=== PATIENT | female | born 1975 | race Caucasian/White ===

== ENCOUNTER → 2017-12-30 10:28 | Outpatient (CLI) | payer OTHER, SELFPAY ==
--- NOTE | 2017-12-30 | IMM_PTH ---
PATIENT: KELSEY ORELLANA LOC: [facility] U#:[id number] AGE/SX: 49/F ROOM: RE12/30/[address]: Dr. Luz Maria Patino MD : 1975 BED: DIS: SPEC #: [id number] RECD: 12/31/17 15:51 STATUS: MICHELA REQuin #: [id number] JILLIAN: 12/30/17 00:[address]: Luz Maria Patino DEPT: IMMUNOHISTOCHEMISTRY RECD BY: Fifi Maldonado ENTERED: 12/31/17 15:52 SP TYPE: IMMUNO OTHR DR: No Primary Care Phys Tissues: Right breast, NOS Procedures: CALPONIN-1 (add) CK8 (add) E-CAD (add) HER2 EDVIN (add) KI-67 (add) P53 (add) NE (add) P40 (add) ER (initial) PHYSICIAN & INSTITUTION [place] [address] SPECIMEN INFORMATION: Tissue Source: Right breast Clinical Info: Right breast 6 o'clock microcalcifications Specimen Number: [id number] #4 CPT code: 11680, 30772 x5, 55362 x3 METHODOLOGY: Deparaffinized sections of prefer/formalin-fixed tissue or PAP/DQ stained slides are incubated with monoclonal/polyclonal antibodies/oligonucleotide probes. Localization is made via biotin free immunoperoxidase method. Appropriate controls are performed and reacted as expected. Results on target cell population are indicated in the following table: RESULTS: ANTIBODY / CLONE RESULT Block 4 E-Cad (ECH-6) positive CK8 (49fvehU64) positive Ki-67 (30-9) positive, moderate P53 (DO-7) positive, moderate P40 (BC28) negative * Calponin-1 (QK467B) negative * *?Positive in the area of ductal carcinoma in situ. MORPHOMETRIC ANALYSIS ER (clone 6F11) 77%, moderate NE (clone 16/1E2) 8%, weak Her-2Neu (clone CB11) 3+ The prognostic test for HER2 is performed on formalin-fixed paraffin embedded tissue. A 3+ (positive) staining pattern is defined as intense, homogeneous, complete, circumferential membranous staining in >10% of contiguous tumor cells. A similar weak (2+) staining pattern is interpreted as equivocal. TANIYA follow-up testing is recommended for all equivocal cases. Positivity/negativity for ER/NE is reported if > or < 1% of the tumor cells are immuno- reactive, respectively. The ASCO/CAP criteria is used for scoring. Reference: Journal of Clinical Oncology, 2013; 31:7136-7675 & 2010; 16:0317-9987. Duration of fixation: 8 Hrs; Sample Adequate: Yes. These assays have not been validated on decalcified tissues. Results should be interpreted with caution given the likelihood of false negativity on decalcified specimens. These tests were developed and their performance characteristics determined by [facility]. They may not have been cleared or approved by the U.S. Food and Drug Administration. The FDA has determined that such clearance or approval is not necessary. 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 Positive for estrogen receptors (favorable prognostic indicator). Positive for progesterone receptors (favorable prognostic indicator). Positive for overexpression of WDT6qkk. SJ:julio 01/01/18 Case has been reviewed in consultation with Dr. Lara who concurs with the above diagnosis. IDC:AM
--- NOTE | 2017-12-30 11:10 | BRBX_PTH ---
PATIENT: KELSEY ORELLANA LOC: [facility] U#:[id number] AGE/SX: 49/F ROOM: RE12/30/[address]: Dr. Luz Maria Patino MD : 1975 BED: DIS: SPEC #: [id number] RECD: 12/30/17 12:21 STATUS: TITIAyse SNOW #: [id number] JILLIAN: 12/30/17 11:[address]: Luz Maria Patino DEPT: SURGICAL PATHOLOGY RECD BY: Marilu Serrato ENTERED: 12/30/17 13:56 SP TYPE: BREAST BX OT DR: No Primary Care Phys Tissues: Right breast, NOS Procedures: Surgery Specimen Level IV HEADER OPERATION: Right breast stereotactic needle core biopsy PRE-OP DIAGNOSIS: Right breast 6 o'clock microcalcifications TISSUE SUBMITTED: Right breast, needle core biopsy ISCHEMIC TIME: 2 minutes FIXATION TIME: 8 hours MICROSCOPIC DIAGNOSIS Right breast, 6 o'clock microcalcifications, stereotactic needle core biopsy: Invasive ductal carcinoma, nuclear grade 3 (0.3 cm in greatest length). Ductal carcinoma in situ. Focal microcalcifications. See comment. HARINDER:julio 12/31/17 COMMENT Invasive carcinoma and ductal carcinoma both show marked chronic inflammatory reaction. Ductal carcinoma in situ shows solid pattern and high nuclear grade. Immunohistochemistry ([id number]) supports the above diagnosis. ER/WA/Qlc4ujc studies are being performed on sections of tumor and the results from this study will be reported separately ([id number]). Case has been reviewed in consultation with Dr. Lara who concurs with the above diagnosis. IDC:AM MICROSCOPIC DESCRIPTION Slides are reviewed. GROSS DESCRIPTION Received is one container labeled with the patient's name and not further designated. The specimen consists of multiple elongated fragments of chan-yellow fibroadipose tissue mixed with blood clot that in aggregate measure 5 x 3 x 1 cm. The entire specimen is submitted in five cassettes. / HARINDER:julio 12/30/17 TC:0 CPT: 65614 ADDENDUM ADDENDUM ADDENDUM ADDENDUM ADDENDUM ADDENDUM ADDENDUM ADDENDUM ADDENDUM ADDENDUM ADDENDUM ADDENDUM 03/28/2018 12:47 ADDENDUM 03/28/2018 12:47 ADDENDUM 03/28/2018 12:47 ADDENDUM 03/28/2018 12:47 ADDENDUM 03/28/2018 12:47 This addendum is added to incorporate an outside pathology consultation report. The case was examined at [facility] (#[id number]) and the following diagnosis was rendered. Breast, right, core biopsies at 6 o'clock: Invasive ductal carcinoma, nuclear grade 3 (3 mm in greatest length). 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 Focal microcalcifications present. Please see complete above mentioned consultation report in EMR
--- NOTE | 2017-12-30 13:33 | OP.PCM_ITS ---
Report of Operation Date of Procedure: 12/30/17 Pre-Operative Diagnosis: abnormal calcifications on right breast mammograms Post-Operative Diagnosis: same Surgery/Procedure Performed:: right stereotactic breast biopsy Description of Surgical Findings:: very superficial calcifications located inferior aspect of breast Type of Anesthesia:: Local - 1% xylocaine Specimen's removed: right breast tissue Estimated Blood Loss (mL): < 1 ml Fluids Replaced: none Description of Procedure: After informed consent was given, the patient was brought into the breast biopsy suite. Appropriate time out protocol was followed. She was then placed in the prone position on the stereotactic biopsy table. The patient?s right breast was then placed at the opening at the head of the table. A high school physical education teacher compression mammogram was then obtained in the medial view. The suspicious radiological lesion was then identified. Stereo pictures of the lesion were then taken for XYZ coordinates. The Mammotome biopsy stylus was then positioned where it would be entering into the patient?s breast. The skin at this site was then cleansed with a surgical skin preparation. The skin and subcutaneous tissues at this site were then infiltrated with 1% xylocaine. A small skin incision was made with an 11 blade scalpel. The biopsy stylus was then positioned into the patient?s breast at the proper coordinates of depth. Using the Mammotome vacuum-assist device, several core samples of breast tissue were obtained. A specimen mammogram was then obtained and revealed that the calcifications were not within the specimen. Therefore the stylus was removed and the area of suspicion was re-targeted. The biopsy stylus was then positioned into the patient?s breast at the proper coordinates of depth. Using the Mammotome vacuum-assist device, several core samples of breast tissue were obtained. A specimen mammogram was then obtained and revealed that the calcifications were within the specimen. A hemostatic marker clip was then placed into the biopsy cavity and a high school physical education teacher film revealed that it was properly deployed. A suture was placed to reapproximated the incision site. The patient was then placed in the supine position and pressure was applied to the breast until no active bleeding was noted. An opsite dressing was applied. A unilateral mammogram in the CC and MLO view were then taken which revealed that the marker clip was in the same area as the previous suspicious lesion. The patient tolerated the procedure well and was discharged from the breast biopsy suite in good condition. - Complications none noted
== END ==
LOC: BIRAD 10:29
PROVIDERS: Referring Provider Surgery; Visit Provider Surgery
DX: D05.11 Intraductal carcinoma in situ of right breast (principal); R92.0 Mammographic microcalcification found on diagnostic imaging of breast
CPT/HCPCS: 19081; 88305; 88341; 88342; J7050; A4648

== ENCOUNTER 2018-01-02 09:20 | Day surgery (SDC) | payer OTHER, SELFPAY ==
[2018-01-02] VITALS (7 sets, daily range): BP systolic 94–122; BP diastolic 60–77; PULSE 65–97; RESP 14–16; TEMP 36.1–36.4; O2SAT 93–98; BMI 33.5
--- NOTE | 2018-01-02 | FALS_PTH ---
PATIENT: KELSEY ORELLANA LOC: [facility] [place] U[place][id number] AGE/SX: 42/F ROOM: RE01/02/[address]: Dr. Sia Oropeza MD : 1975 BED: DIS: 01/02/2018 SPEC #: [id number] RECD: 01/02/18 15:03 STATUS: MICHELA GWENDOLYN #: [id number] JILLIAN: 01/02/18 00:[address]: Sia Oropeza DEPT: SURGICAL PATHOLOGY RECD BY: Pankaj Thakur ENTERED: 01/02/18 15:03 SP TYPE: FALL TUBES OTHR DR: No Primary Care Phys Tissues: A - Fallopian tube B - Endometrium, NOS Procedures: Surgery Specimen Level II Surgery Specimen Level IV HEADER OPERATION: Laparoscopic bilateral salpingectomy, hysteroscopy, dilation and curettage PRE-OP DIAGNOSIS: Menorrhagia, desire for sterilization TISSUE SUBMITTED: A - Bilateral fallopian tubes, B - Endometrial polyp MICROSCOPIC DIAGNOSIS A. Bilateral fallopian tubes, bilateral salpingectomy: Bilateral fallopian tubes including fimbrial ends, no pathologic diagnosis. Paratubal cysts. B. Endometrial polyp: A polypoid fragment of proliferative endometrium may represent benign endometrial polyp. SJ:julio 01/03/18 COMMENT Please make reference to previous specimen ([id number]), right breast, 6 o'clock microcalcifications, stereotactic needle core biopsy with diagnosis of invasive ductal carcinoma, ductal carcinoma in situ and focal microcalcifications. This case is discussed with Dr. Oropeza on 01/03/18. MICROSCOPIC DESCRIPTION Slides are reviewed. GROSS DESCRIPTION A - Received is one container labeled with the patient's name and designated bilateral fallopian tubes. The specimen consists of bilateral fallopian tubes including fimbrial ends measuring 5 cm in length and 0.5 cm in diameter and 4.5 cm in length and 0.5 cm in diameter. The fallopian tubes are not identified as right or left. Sections reveal unremarkable cut surfaces. Tobacco Sampler sections are submitted in two cassettes with each cassette containing one fallopian tube. B - Received in fixative is one container labeled with the patient's name and designated endometrial polyp. The specimen consists of a piece of chan-pink congested polyp measuring 1 x 0.5 x 0.3 cm. The entire specimen is submitted in one cassette. / HARINDER:julio 01/02/18 TC:5 CPT: 98439, 66047 x2
[2018-01-02 09:44] LABS: Internal QC Validated? YES +Cl - CLEAR BKGD
[2018-01-02 09:45] LABS: Pregnancy, Urine Negative Negative
[2018-01-02 09:58] LABS: Hematocrit 39.6 % (37-47); Hemoglobin 12.9 g/dl (12.0-15.0); Mean Corp Hgb Conc 32.6 g/gl (32-36); Mean Corpuscular Volume 92.1 fL (81-99); Mean Platelet Vol. 9.4 fl (6.2-12.0); Platelet Count 338 K/mm3 (150-450); RBC Distribution Width CV 13.1 % (11.6-14.6); RBC Distribution Width SD 43.2 fl (35.1-43.9)
[2018-01-02 10:02] LABS: Scan Indicated on CBC? Y/N NO
[2018-01-02] MEDS: Gabapentin 600 MG Tablet PO (10:11)
[2018-01-02] MEDS: Acetaminophen 500 MG Tablet 1000 MG PO (10:11)
[2018-01-02] MEDS: Celecoxib 200 MG Capsule PO (10:12)
--- NOTE | 2018-01-02 11:29 | DCINST_ITS ---
Discharge Diet: No Restrictions Discharge Activity: Return to Normal Activity, May Shower, May Take a Tub Bath - when bleeding stops Return to work on:: 01/06/18 May shower in (days): 1 May resume sexual activity in: 3 weeks, - Call your doctor if your incision/area has: Sudden Increased Bleeding, Increased Pain/ Swelling, Foul Smelling Discharge, Swelling at the incision site Call your doctor if you observe: Fever of 101 or Higher, Using more than one pad per hour - for 2 hrs in a row Cleanse incision/area with: Soap & Water, - - your incisions have skin glue, it can get wet Allergies/Adverse Reactions: Allergies No Known Allergies Allergy (Verified 12/26/17 13:49) Medications to take at Discharge NK 12/26/17 Primary Care Physician: Care Physician,No Primary [Primary Care Provider] - Test Results: Test results from this visit will be discussed in further detail at your follow- up appointment, if applicable. Please Follow Up With: Sia Oropeza MD - [phone] When: 2-4 weeks or prn
[2018-01-02] MEDS: Bupivacaine Mpf 0.5% 30 ML VIAL (11:40)
--- NOTE | 2018-01-02 12:17 | PCM.OPRPT ---
Report of Operation Date of Procedure: 01/02/18 Pre-Operative Diagnosis: Menorrhagia, sterilization request Post-Operative Diagnosis: same Surgery/Procedure Performed:: Hysteroscopy dilation and curettage with Annette endometrial ablation and laparoscopic bilateral salpingectomy assistant professor in family studies: Alfonso Naranjo MS3 Type of Anesthesia:: General Anesthesiologist: Jyoti Carr Special Medications: none Specimen's removed: Bilateral fallopian tubes and polypoid appearing piece of endometrial tissue Drains: None Estimated Blood Loss (mL): 20 cc Fluids Replaced: 1400 cc LR Description of Procedure: The patient was taken to the operating room where she was prepped and draped in the dorsolithotomy position. A weighted speculum was placed in the vagina and the anterior lip of the cervix was grasped with a tenaculum. The Shahrzad uterine manipulator was placed and the remainder of the instruments were removed from the vagina. Attention was turned to the abdomen. All port sites were infiltrated with 0.5% Marcaine before skin incisions were made. A 5 mm intraumbilical incision was made. The anterior abdominal wall was tented up with 2 towel clamps while a 5 mm blade less trocar and sleeve were directly inserted. Intraperitoneal placement was confirmed with the laparoscope. The pneumoperitoneum was created and the underlying abdominal contents were intact. The patient was placed in Trendelenburg. Right and left lower quadrant ports were placed under direct visualization lateral to the inferior epigastric vessels. The bowel was swept away and the above findings were noted. The LigaSure device was used to clamp seal and transect the antimesenteric portions of the right tube to the cornual insertion of the uterus. The tube was amputated from the uterus and the pedicles were all confirmed to be hemostatic. The same procedure was performed on the contralateral side. The specimens were brought out through a 5 mm port. The pedicles were again examined and found to be hemostatic. The lateral ports were removed under direct visualization and no active bleeding was noted. The pneumoperitoneum was released. The skin incisions were closed with Monocryl suture in a subcuticular fashion and skin glue . The cervix was dilated serially with Hegar dilators. The 5mm hysteroscope was placed into the uterine cavity and the above findings were noted. Bilateral tubal ostia were identified. The uterus sounded to 8 cm cm and the cervical length was 2.5 cm. The endometrial cavity length was 4.5cm. The hysteroscope was removed. A gentle sharp curettage was done in the left lower fundal area to remove the polypoid appearing piece of endometrium that was noted in that area. The Annette device was set to 4.5 cm. The instrument was then seated into the endometrial cavity and the indicator was in the green. The cervical seal balloon was inflated and the uterine integrity test was passed. The ablation procedure was initiated and completed without interruption. During the ablation procedure gentle traction was held on the tenaculum and the Annette device was held up against the uterine fundus. When the ablation procedure was completed the Annette was removed. The tenaculum was removed and the tenaculum site was noted to be hemostatic. All sponge and needle counts were correct. A vaginal sweep was performed by me. The patient was awakened and taken to the recovery room in stable condition. Hysteroscopic ins: 200cc normal saline Hysteroscopic outs:150cc Findings: Endometrial cavity: Normal-appearing cervix, endocervix with polypoid appearing area of endometrium in the left lower fundal area of the uterus. Cervix: Normal Vagina: Normal Grafts/Implants Used: None - Complications None
== END 2018-01-02 14:30 | disposition home or self-care (01) ==
LOC: SDC 09:23 → AC 09:23
PROVIDERS: Referring Provider Obstetrics & Gynecology; Visit Provider Obstetrics & Gynecology
PROC: (CPT 58661; principal; 2018-01-02 10:40)
DX: Z30.2 Encounter for sterilization (principal); N92.0 Excessive and frequent menstruation with regular cycle; N83.8 Other noninflammatory disorders of ovary, fallopian tube and broad ligament; N84.0 Polyp of corpus uteri; F17.210 Nicotine dependence, cigarettes, uncomplicated
CPT/HCPCS: 58563; 58661; 36415; 81025; 85027; 88302; 88305; J7120; J2405

== ENCOUNTER → 2023-09-12 | Outpatient (CLI) | payer OTHER, SELFPAY ==
[2023-09-12 17:15] LABS: Absolute Lymphocyte Count 5.84 X10^3/uL (0.83-4.51); Absolute Neutrophil Count 5.4 X10^3/uL (2.0-7.7); Basophil# 0.08 X10^3/uL; Basophil% 0.6 % (0-1); Eosinophil# 0.29 X10^3/uL; Eosinophils% 2.3 % (0-5); Hemoglobin 13.5 g/dL (12.0-15.0); Lymphocyte # 5.84 X10^3/ul (0.83-4.51); Lymphocyte % 45.7 % (19-41); Mean Corp Hgb Conc 32.9 g/dL (32-36); Mean Platelet Vol. 9.4 fl (6.2-12.0); Monocyte# 1.18 X10^3/uL; Monocyte% 9.2 % (0-10); NRBC Flagged by Analyzer 0 % (0-5); Neutrophil # 5.35 X10^3/uL (2.7-7.7); POSITIVE DIFFERENTIAL YES; POSITIVE MORPHOLOGY YES; Platelet Count 317 K/mm3 (150-450); RBC Distribution Width CV 13.1 % (11.6-14.6); RBC Distribution Width SD 45.2 fl (35.1-43.9); Red Blood Count 4.36 M/mm3 (4.2-5.4); White Blood Count 12.8 K/mm3 (4.4-11.0)
[2023-09-12 17:19] LABS: Differential Indicated SCAN CRITERIA MET
[2023-09-12 17:29] LABS: Vitamin B12 285 pg/mL (211-911); Vitamin D,25 Hydroxy 24.5 ng/mL
[2023-09-12 17:43] LABS: AST(SGOT) 14 U/L (15-37); Alanine Aminotransfer ALT/SGPT 22 U/L (13-56); Albumin, Serum 3.3 g/dL (3.2-5.0); Alkaline Phosphatase 52 U/L (45-117); Anion Gap 5 (5-15); BUN 10 mg/dL (7-18); BUN/Creat Ratio 15.9 RATIO (10-20); Chloride 109 mmol/L (98-107); Cholesterol 230 mg/dL (200); Creatinine, Serum 0.63 mg/dL (0.55-1.02); EST Glomerular Filtration Rate 107 mL/min (>60); Est Glom Filt Rate - Afr Amer 129 mL/min (>60); Follicle Stimulating Hormone 14.8 mIU/mL; Globulin 3.3 g/dL (2.2-4.2); Glucose 92 mg/dL (74-106); High Density Lipoprotein 39 mg/dL; Luteinizing Hormone 6.5 mIU/mL; Potassium 3.7 mmol/L (3.5-5.1); Protein, Total 6.6 g/dL (6.4-8.2); Sodium Level 139 mmol/L (136-145); Thyroid Stim Hormone (TSH) 1.13 uIU/mL (0.358-3.74); Triglycerides 293 mg/dL; Very Low Density Lipoprotein 59 mg/dL (5-40)
[2023-09-12 17:49] LABS: Atypical Lymphocyte RARE %
== END | disposition home or self-care (01) ==
LOC: VSLAB 15:21
PROVIDERS: PCP Nurse Practitioner Family; Visit Provider Nurse Practitioner Family
DX: R73.03 Prediabetes (principal); E66.9 Obesity, unspecified; N95.1 Menopausal and female climacteric states; E56.9 Vitamin deficiency, unspecified
CPT/HCPCS: 36415; 80053; 80061; 82306; 82607; 82670; 83001; 83002; 84443; 85025

== ENCOUNTER → 2024-03-18 | Outpatient (CLI) | payer OTHER, SELFPAY ==
[2024-03-18 17:10] LABS: Absolute Lymphocyte Count 5.49 X10^3/uL (0.83-4.51); Absolute Neutrophil Count 4.6 X10^3/uL (2.0-7.7); Basophil# 0.07 X10^3/uL; Basophil% 0.6 % (0-1); Eosinophil# 0.31 X10^3/uL; Eosinophils% 2.7 % (0-5); Hemoglobin 14.2 g/dL (12.0-15.0); Lymphocyte # 5.49 X10^3/ul (0.83-4.51); Lymphocyte % 47.9 % (19-41); Mean Corp Hgb Conc 33.8 g/dL (32-36); Mean Corpuscular Hgb 30.5 pg (27.0-32.0); Mean Corpuscular Volume 90.3 fL (81-99); Mean Platelet Vol. 9.1 fl (6.2-12.0); Monocyte# 0.95 X10^3/uL; Monocyte% 8.3 % (0-10); NRBC Flagged by Analyzer 0 % (0-5); Neutrophil # 4.63 X10^3/uL (2.7-7.7); Neutrophil % 40.3 % (47-70); POSITIVE DIFFERENTIAL YES; POSITIVE MORPHOLOGY YES; Platelet Count 352 K/mm3 (150-450); RBC Distribution Width CV 12.4 % (11.6-14.6); RBC Distribution Width SD 40.5 fl (35.1-43.9); Red Blood Count 4.65 M/mm3 (4.2-5.4); White Blood Count 11.5 K/mm3 (4.4-11.0)
[2024-03-18 17:20] LABS: Differential Indicated SCAN CRITERIA MET
[2024-03-18 17:48] LABS: Differential Comment SCANNED; Reactive Lymphocyte RARE
[2024-03-18 17:54] LABS: Vitamin D,25 Hydroxy 52.2 ng/mL
[2024-03-18 18:27] LABS: ALB/GLOB Ratio 1.1 RATIO (0.9-2.4); AST(SGOT) 8 U/L (15-37); Alanine Aminotransfer ALT/SGPT 22 U/L (13-56); Albumin, Serum 3.7 g/dL (3.2-5.0); Alkaline Phosphatase 60 U/L (45-117); Anion Gap 10 (5-15); BUN 8 mg/dL (7-18); BUN/Creat Ratio 14.3 RATIO (10-20); Calcium,Total 9.8 mg/dL (8.5-10.1); Chloride 106 mmol/L (98-107); Cholesterol 263 mg/dL (200); Creatinine, Serum 0.56 mg/dL (0.55-1.02); EST Glomerular Filtration Rate 122 mL/min (>60); Est Glom Filt Rate - Afr Amer 148 mL/min (>60); Globulin 3.5 g/dL (2.2-4.2); Glucose 106 mg/dL (74-106); High Density Lipoprotein 42 mg/dL; Iron 76 ug/dL (50-170); Iron Binding Capacity,Total 402 ug/dL (250-450); PERCENT IRON SATURATION 18.9 % (15.0-55.0); Potassium 3.5 mmol/L (3.5-5.1); Protein, Total 7.2 g/dL (6.4-8.2); Sodium Level 137 mmol/L (136-145); Triglycerides 164 mg/dL; Very Low Density Lipoprotein 33 mg/dL (5-40)
[2024-03-18 18:53] LABS: Hemoglobin A1c 5.3 % (3.8-5.6)
== END | disposition home or self-care (01) ==
LOC: VSLAB 16:37
PROVIDERS: PCP Nurse Practitioner Family; Referring Provider Nurse Practitioner Family; Visit Provider Nurse Practitioner Family
DX: G25.81 Restless legs syndrome (principal); E55.9 Vitamin D deficiency, unspecified; R73.03 Prediabetes
CPT/HCPCS: 36415; 80053; 80061; 82306; 83036; 83540; 83550; 84443; 85025

== ENCOUNTER → 2024-09-15 | Outpatient (CLI) | payer OTHER, SELFPAY ==
[2024-09-15 16:37] LABS: Hematocrit 40.4 % (37-47); Hemoglobin 13.7 g/dL (12.0-15.0); Immature Granulocytes Count 0.020 X10^3/uL (0.0-0.0); Mean Corp Hgb Conc 33.9 g/dL (32-36); Mean Corpuscular Volume 89.8 fL (81-99); Mean Platelet Vol. 9.3 fl (6.2-12.0); NRBC Flagged by Analyzer 0 % (0-5); POSITIVE DIFFERENTIAL YES; Platelet Count 316 K/mm3 (150-450); RBC Distribution Width CV 12.4 % (11.6-14.6); RBC Distribution Width SD 40.8 fl (35.1-43.9); Red Blood Count 4.50 M/mm3 (4.2-5.4); White Blood Count 11.4 K/mm3 (4.4-11.0)
[2024-09-15 17:48] LABS: AST(SGOT) 14 U/L (<=31); Alanine Aminotransfer ALT/SGPT 10 U/L (<=34); Albumin, Serum 4.3 g/dL (3.5-5.0); Alkaline Phosphatase 63 U/L (35-104); Anion Gap 13 (5-15); BUN 10 mg/dL (4-19); BUN/Creat Ratio 15.9 RATIO (10-20); Calcium,Total 10.1 mg/dL (7.6-11.0); Carbon Dioxide 22.6 mmol/L (21.0-32.0); Chloride 106 mmol/L (98-108); Cholesterol 159 mg/dL (<=200); Globulin 2.4 g/dL (2.2-4.2); Glucose 99 mg/dL (70-99); Low Density Lipoprotein Calc. 85 mg/dL; Potassium 3.7 mmol/L (3.3-5.1); Triglycerides 179 mg/dL; Very Low Density Lipoprotein 36 mg/dL (5-40); Vitamin D,25 Hydroxy 32.3 ng/mL (30-100); cholesterol:hdl ratio screen 4.18
== END | disposition home or self-care (01) ==
LOC: VSLAB 15:56
PROVIDERS: PCP Nurse Practitioner Family; Visit Provider Nurse Practitioner Family
DX: R73.03 Prediabetes (principal); E78.5 Hyperlipidemia, unspecified; E55.9 Vitamin D deficiency, unspecified; G25.81 Restless legs syndrome
CPT/HCPCS: 36415; 80053; 80061; 82306; 83036; 84443; 85025